=== PATIENT | male | born 1955 | race Caucasian/White ===

== ENCOUNTER 2016-09-15 08:56 | Day surgery (SDC) | payer BC ==
[~2016-09-15] VITALS: Ht 171.4 cm; Wt 104.3 kg
[~2016-09-15 08:56] MED LIST: ADVIL200 MG PO; ASPIRIN EC81 MG PO; CRESTOR10 MG PO; FISH OIL 1,0001 EAC4 PO; LEVOTHROID(SY175 MCG PO; THERA-VITE W/ B1 TAB PO; VIAGRA50 MG PO
== END 2016-09-15 10:40 | disposition disaster alternative care site (69) ==
LOC: GEND 08:56 → GPOC 13:00
PROC: 0DBP8ZX Excision of Rectum, Via Natural or Artificial Opening Endoscopic, Diagnostic (ICD-10-PCS; principal; 2016-09-15)
DX: Z12.11 Encounter for screening for malignant neoplasm of colon (principal); K57.30 Diverticulosis of large intestine without perforation or abscess without bleeding; E78.00 Pure hypercholesterolemia, unspecified; E03.9 Hypothyroidism, unspecified; E78.2 Mixed hyperlipidemia; E66.9 Obesity, unspecified; N52.9 Male erectile dysfunction, unspecified; Z68.36 Body mass index [BMI] 36.0-36.9, adult; Z79.82 Long term (current) use of aspirin; Z79.899 Other long term (current) drug therapy
CPT/HCPCS: J2001; J7030